=== PATIENT | female | born 1960 | race Caucasian/White ===

== ENCOUNTER → 2020-04-20 | Outpatient (CLI) | payer OTHER ==
[~2020-04-20] MED LIST: AMOXICILLIN500 MG PO; ANAPROX DS550 MG PO; AUGMENTIN 875875 MG PO; Glucosamine500 MG PO; MACROBID100 M1 PO; MULTIPLE VITAMI1 CAP PO; PHENERGAN W/ DE30 ML PO; PREDNICOT20 MG PO; PRILOSEC20 M1 PO; VICODIN 500 MG-1 TAB PO; VICODIN ES 7501 TAB PO; ZOFRAN4 MG PO; ZYRTEC10 MG PO; Zofran4 MG PO
== END | disposition home or self-care (01) ==
LOC: COVID19 15:18
PROVIDERS: ATTEND Nurse Practitioner Family
DX: Z20.822 Contact with and (suspected) exposure to COVID-19 (principal); R53.83 Other fatigue; R09.81 Nasal congestion

== ENCOUNTER → 2020-05-24 | Outpatient (CLI) | payer OTHER | END | disposition home or self-care (01) | LOC: LAB 11:26 | PROVIDERS: ATTEND Family Medicine | DX: E83.52 Hypercalcemia (principal) ==

== ENCOUNTER → 2021-05-01 | Outpatient (CLI) | payer OTHER ==
[2021-05-01 15:52] LABS: BASO % 0.5 % (0.0-1.0); EOS # 0.3 10*3/uL (0.0-0.4); EOS % 5.4 % (1.0-4.0); LYMPH # 1.6 10*3/uL (1.3-4.4); MEAN CELL VOLUME 90.1 fl (81.0-99.0); MEAN CORPUSCULAR HGB CONC 33.3 g/dl (33.0-37.0); MONO # 0.4 10*3/uL (0.1-1.0); MONO % 6.4 % (3.0-9.0); NEUT # 3.7 10*3/uL (2.3-7.9); NEUT % 61.5 % (47.0-73.0); PLATELET COUNT AUTOMATED 200 10*3/uL (130-400); RED BLOOD COUNT 4.44 10*6/uL (4.10-5.10); RED CELL DISTRI WIDTH 12.7 % (0-14.5); WHITE BLOOD COUNT 6.1 10*3/uL (4.8-10.8)
[2021-05-01 16:17] LABS: ALBUMIN 4.2 gm/dl (3.1-4.5); ALKALINE PHOSPHATASE 72 U/L (45-117); BUN 11 mg/dl (7-24); CHLORIDE 108 mmol/L (98-107); POTASSIUM 3.9 mmol/L (3.5-5.1); SGOT/AST 17 IU/L (3-35); SGPT/ALT 22 U/L (12-78); SODIUM 140 mmol/L (136-145); TOTAL PROTEIN 7.6 gm/dL (6.4-8.2)
== END | disposition home or self-care (01) ==
LOC: LAB 15:27
PROVIDERS: ATTEND Family Medicine
DX: Z00.00 Encounter for general adult medical examination without abnormal findings (principal); E83.52 Hypercalcemia

== ENCOUNTER 2022-03-22 21:02 | Emergency (ER) | payer SELFPAY ==
[~2022-03-22] VITALS: Ht 157.4 cm; Wt 53.5 kg
[2022-03-22] MEDS ORDERED: VIBRA-TAB100 MG PO (21:38)
[2022-03-22] MEDS ORDERED: [UNRECOGNIZED DRUG - OTHER] PO (22:01)
== END 2022-03-22 22:13 | disposition home or self-care (01) ==
LOC: ED 21:02
DX: J32.8 Other chronic sinusitis (principal); Z88.1 Allergy status to other antibiotic agents; Z79.899 Other long term (current) drug therapy; Z90.89 Acquired absence of other organs; Z90.49 Acquired absence of other specified parts of digestive tract; Z98.890 Other specified postprocedural states

== ENCOUNTER 2023-03-25 15:55 | Emergency (ER) | payer BC ==
[~2023-03-25] VITALS: Ht 154.9 cm; Wt 68.0 kg
[~2023-03-25 15:55] MED LIST changes: +VIBRA-TAB100 MG PO; +[UNRECOGNIZED DRUG - OTHER] PO
== END 2023-03-25 18:52 | disposition left against medical advice (07) ==
LOC: ED 15:55
DX: M79.10 Myalgia, unspecified site (principal); R11.10 Vomiting, unspecified; R68.83 Chills (without fever); Z88.1 Allergy status to other antibiotic agents; Z88.2 Allergy status to sulfonamides; Z88.8 Allergy status to other drugs, medicaments and biological substances; Z53.21 Procedure and treatment not carried out due to patient leaving prior to being seen by health care provider